=== PATIENT | male | born 1985 | race Hispanic/Latino ===

== ENCOUNTER 2017-02-27 15:39 | Emergency (ER) | payer BC ==
[~2017-02-27] VITALS: Ht 160 cm; Wt 72.4 kg
[~2017-02-27 15:39] MED LIST: NO; ULTRAM50 M1 PO
[2017-02-27] MEDS ORDERED: ACYCLOVIR200 MG PO (15:48)
[2017-02-27] MEDS ORDERED: AMOXICILLIN500 M2 (15:48)
[2017-02-27] MEDS ORDERED: PREDNISONE50 MG PO (15:53)
[2017-02-27] MEDS ORDERED: BENADRYL 50MG C50 MG PO (15:53)
[2017-02-27 16:07] VITALS: BP 128/66
== END 2017-02-27 16:15 | disposition home or self-care (01) | DRG 607 ==
LOC: ED 15:39
DX: R21 Rash and other nonspecific skin eruption (principal)

== ENCOUNTER 2017-07-08 09:38 | Day surgery (SDC) | payer BC ==
[~2017-07-08 09:38] MED LIST changes: +ACYCLOVIR200 MG PO; +AMOXICILLIN500 M2; +BENADRYL 50MG C50 MG PO; +MULTI VITAMIN D1 TAB PO; +PREDNISONE50 MG PO
[2017-07-08 12:24] VITALS: BP 113/76
== END 2017-07-08 12:35 | disposition home or self-care (01) | DRG 392 ==
LOC: ENDO 09:38
PROVIDERS: ATTEND Internal Medicine Gastroenterology
PROC: 0DB48ZX Excision of Esophagogastric Junction, Via Natural or Artificial Opening Endoscopic, Diagnostic (ICD-10-PCS; principal; 2017-07-08)
PROC: 0DB78ZX Excision of Stomach, Pylorus, Via Natural or Artificial Opening Endoscopic, Diagnostic (ICD-10-PCS; 2017-07-08)
DX: K21.0 Gastro-esophageal reflux disease with esophagitis (principal); K29.50 Unspecified chronic gastritis without bleeding; R14.0 Abdominal distension (gaseous); K44.9 Diaphragmatic hernia without obstruction or gangrene; Z87.11 Personal history of peptic ulcer disease

== ENCOUNTER 2018-06-07 18:01 | Emergency (ER) | payer BC ==
[~2018-06-07] VITALS: Ht 162.6 cm; Wt 77.0 kg
[2018-06-07] MEDS ORDERED: OMEPRAZOLE20 M2 PO (18:28)
[2018-06-07] MEDS ORDERED: NAPROSYN500 MG PO (18:49)
[2018-06-07 18:55] VITALS: BP 129/76
== END 2018-06-07 18:55 | disposition home or self-care (01) | DRG 563 ==
LOC: ED 18:01
DX: S83.92XA Sprain of unspecified site of left knee, initial encounter (principal); X50.1XXA Overexertion from prolonged static or awkward postures, initial encounter; Y93.89 Activity, other specified; Y92.009 Unspecified place in unspecified non-institutional (private) residence as the place of occurrence of the external cause

== ENCOUNTER 2019-02-28 19:44 | Emergency (ER) | payer BC ==
[~2019-02-28] VITALS: Ht 162.6 cm; Wt 77.0 kg
[~2019-02-28 19:44] MED LIST changes: +NAPROSYN500 MG PO; +OMEPRAZOLE20 M2 PO
[2019-02-28 20:22] LABS: HEMATOCRIT 43.3 % (39.0-50.0); HEMOGLOBIN 14.8 g/dl (14.0-18.0); IMMATURE GRANULOCYTES 0.4 % (0.0-5.0); MEAN CELL VOLUME 80.8 fL CALC (80.0-100.0); MEAN CORPUSCULAR HGB 27.6 pG CALC (26.0-32.0); MEAN CORPUSCULAR HGB CONC 34.2 g/L CALC (32.0-36.0); NEUT# 4.3 thou/uL (1.82-7.42); RED BLOOD COUNT 5.36 mill/uL (4.70-6.10); RED CELL DISTRI WIDTH 13.2 % (11.5-15.5)
[2019-02-28 20:37] LABS: ALKALINE PHOSPHATASE 105 u/l (38-126); ANION GAP 16 (6-22 (CALC)); BILIRUBIN, TOTAL 0.4 mg/dL (0.0-1.4); BUN 14 mg/dL (9-20); BUN/CREATININE RATIO 14 (12-20 (CALC)); CARBON DIOXIDE 26 mmol/l (22-30); CHLORIDE 103 mmol/l (95-108); CREATININE 0.9 mg/dL (0.7-1.3); GFR > 60 ML/MIN (>=60 (CALC)); GFR FOR AFR.AMER. > 60 ML/MIN (>=60 (CALC)); SGOT/AST 29 u/l (17-59); SODIUM 141 mmol/l (137-146); TOTAL PROTEIN 8.2 g/dL (6.3-8.2)
[2019-02-28 20:49] LABS: MYOGLOBIN 21 ng/mL (0 - 121)
[2019-02-28] MEDS ORDERED: NAPROSYN500 MG PO (20:53)
[2019-02-28 21:00] VITALS: BP 132/74
== END 2019-02-28 21:04 | disposition home or self-care (01) | DRG 313 ==
LOC: ED 19:44
PROVIDERS: Emergency Medicine
DX: R07.89 Other chest pain (principal); K21.9 Gastro-esophageal reflux disease without esophagitis

== ENCOUNTER 2023-09-05 01:04 | Emergency (ER) | payer OTHER ==
[~2023-09-05] VITALS: Ht 162.6 cm; Wt 81.0 kg
[2023-09-05 01:10] VITALS: BP 130/89
[2023-09-05 01:15] VITALS: BP 123/88
[2023-09-05 01:45] LABS: BASO% 0.3 % (0-3); HEMOGLOBIN 14.9 g/dl (14.0-18.0); IMMATURE GRANULOCYTES 0.5 % (0.0-5.0); LYMPH% 32.1 % (15-41); MEAN CELL VOLUME 84.3 fL CALC (80.0-100.0); MEAN CORPUSCULAR HGB 27.9 pG CALC (26.0-32.0); MEAN CORPUSCULAR HGB CONC 33.1 g/dL CAL (32.0-36.0); MONO% 6.8 % (2-13); NEUT# 3.53 thou/uL (1.82-7.42); NEUT% 58.3 % (42-76); RED BLOOD COUNT 5.34 mill/uL (4.70-6.10); RED CELL DISTRI WIDTH 12.9 % (11.5-15.5)
[2023-09-05 02:04] LABS: ALKALINE PHOSPHATASE 97 u/l (38-126); ANION GAP 19 (6-22 (CALC)); BILIRUBIN, TOTAL 0.3 mg/dL (0.2-1.3); BUN 12 mg/dL (9-20); BUN/CREATININE RATIO 16 (12-20 (CALC)); CARBON DIOXIDE 23 mmol/l (22-30); CHLORIDE 104 mmol/l (95-108); CREATININE 0.8 mg/dL (0.7-1.3); GFR FOR AFR.AMER. > 60 ML/MIN (>=60 (CALC)); GFR OTHER RACES > 60 ML/MIN (>=60 (CALC)); POTASSIUM 4.1 mmol/l (3.5-5.1); SGOT/AST 40 u/l (17-59); SODIUM 141 mmol/l (137-146); TOTAL PROTEIN 8.1 g/dL (6.3-8.2)
[2023-09-05 03:19] VITALS: BP 123/88
== END 2023-09-05 03:21 | disposition left against medical advice (07) | DRG 392 ==
LOC: ED 01:04
PROVIDERS: Family Medicine
DX: K21.9 Gastro-esophageal reflux disease without esophagitis (principal); Z20.822 Contact with and (suspected) exposure to COVID-19; Z53.29 Procedure and treatment not carried out because of patient's decision for other reasons